=== PATIENT | female | born 1980 | race Caucasian/White ===

== ENCOUNTER 2016-12-02 19:23 | Emergency (ER) | payer SELFPAY ==
[2016-12-02] MEDS ORDERED: levETIRAcetam 500 MG TABLET PO ONE (19:54)
--- NOTE | 2016-12-02 19:56 | ED Physician Documentation ---
Seizure - HISTORIAN Historian: patient - HPI Stated Complaint: seizures Chief Complaint: Seizure Timing/Onset/Duration: multiple episodes Last known Well Date: 12/02/16 Last Known Well Time: 19:20 Last known Well Code/Unknown Code: Known Witnessed By: other (deputey) Preceding Symptoms: sleep deprivation, missed seizure meds. denies: fever, chills, recent alcohol intake, recent drug use Character of Seizure(s): lost consciousness, "shaking all over" Further Comments: yes (Patient has been incarcerated for about 36 hours, has had 3 seizures reported today. Patient states that she has not taken her seizure medication for the last three days and this is what usually willhapeen when that occurrs. Seizures last about 60-120 seconds. No incontinence noted or bowel incontinence noted. Patient states that she in is not sure of why she has seizures. Not sure when he blood levels were last drawn. Denies any head injury.) - ROS NEURO/PSYCH: denies: headache, fainting, dizziness - PAST HX Previous seizure/seizure disorder: long-standing, other (patient not sure why she has seizures) Etiology: idiopathic Other History: none Surgeries/Procedures: none Allergies/Adverse Reactions: Allergies Allergy/AdvReac Type Severity Reaction Status Date / Time No Known Allergies Allergy Verified 12/02/16 20:16 Home Medications: Ambulatory Orders Medication Instructions Recorded Cyclobenzaprine HCl [Flexeril] 5 mg PO DIRECTED 12/02/16 Divalproex Sodium [Depakote] 500 mg PO DIRECTED 12/02/16 Hydroxyzine Pamoate [Vistaril] 25 mg PO DIRECTED 12/02/16 Levetiracetam [Keppra] 1,200 mg PO D 12/02/16 - SOCIAL HX Smoking History: less than 1 pack/day Alcohol Use: none Drug Use: none - FAMILY HX Family History: none. denies: seizure - VITAL SIGNS Vital Signs: Vital Signs Temp Pulse Resp BP Pulse Ox 98 F 109 H 22 109/52 94 12/02/16 19:23 12/02/16 19:23 12/02/16 19:23 12/02/16 19:23 12/02/16 19:23 - REVIEWED ASSESSMENTS Nursing Assessment Reviewed: Yes Vitals Reviewed: Yes Progress - Results/Orders Results/Orders: Patient had a tonic/clonic seizure while checking in to the ED. Lasted about 90 seconds. Patient states that she is taking depokote 750mg daily and Keppra 1200mg BID. States that when she skips her meds and starts having seizures like today once she takes one to two doses of her meds she does OK. - Progress Progress: 20:43 Patient continues to rest quietly at this time. Is awake and alert, Ox3, no neurological deficiets noted. 21:10 Patient is resting queitly at this time. Patient has had her daily dose of medications tonight. It is believed that with the medication now on board that she will do will. I would consider giving some ativan to help with her nerves for the next 24hours. ED Results Lab/Radiology - Lab Results Lab Results: Lab Results 12/02/16 12/02/16 20:13 20:13 WBC 16.70 K/ul H K/ul (4.00-12.00) RBC 4.23 M/ul M/ul (3.90-5.20) Hgb 12.6 g/dL g/dL (12.0-16.0) Hct 42.1 % % (34.5-46.5) MCV 99.4 fl fl (80.0-100.0) MCH 29.8 pg pg (28.0-34.0) MCHC 30.0 g/dL g/dL (30.0-36.0) RDW 13.4 % % (11.3-14.3) Plt Count 204 K/mm3 K/mm3 (130-400) Neut % (Auto) 78.8 % % (39.0-79.0) Lymph % (Auto) 14.9 % L % (16.0-50.0) Fisher % (Auto) 3.9 % % (0.0-11.0) Eos % (Auto) 0.1 % % (0.0-6.8) Baso % (Auto) 0.5 (0.0-1.5) Neut # (Auto) 13.2 # k/uL H # k/uL (1.4-7.7) Lymph # (Auto) 2.5 # k/uL # k/uL (0.6-4.0) Fisher # (Auto) 0.7 # k/uL # k/uL (0.0-0.9) Eos # (Auto) 0.0 # k/uL # k/uL (0.0-0.6) Baso # (Auto) 0.1 # k/uL # k/uL (0.0-0.5) Reactive Lymphs % 1.8 % % (0.0-5.0) Reactive Lymphs # 0.3 # k/uL # k/uL (0.0-0.8) Sodium 143 mmol/L mmol/L (136-145) Potassium 3.5 mmol/L mmol/L (3.5-5.0) Chloride 103 mmol/L mmol/L (98-110) Carbon Dioxide 15 mmol/L L mmol/L (20-32) BUN 11 mg/dL mg/dL (10-26) Creatinine 0.7 mg/dL mg/dL (0.4-1.5) Est GFR ( Amer) > 60 (60 - ) Est GFR (Non-Af Amer) > 60 (60 - ) Glucose 168 mg/dL H mg/dL (70-99) Calcium 9.6 mg/dL mg/dL (8.5-10.5) Total Bilirubin 0.3 mg/dL mg/dL (0.2-1.2) AST 18 U/L U/L (0-41) ALT 17 U/L U/L (0-45) Alkaline Phosphatase 54 U/L U/L (46-116) Total Protein 7.6 g/dL g/dL (6.0-8.5) Albumin 5.0 g/dL g/dL (3.0-5.5) - Orders Orders: ED Orders Category Date Time Status Apply Restraints 1T Care 12/02/16 19:35 Active Remove Restraints .Once Care 12/02/16 20:02 Active CBC/PLATELET/DIFF Routine Lab 12/02/16 20:13 Completed CMP Routine Lab 12/02/16 20:13 Completed DRUG SCREEN URINE MEDICAL ONLY Routine Lab 12/02/16 Ordered URINALYSIS Routine Lab 12/02/16 20:43 Ordered URINE HCG Urgent Lab 12/02/16 Uncollected LORazepam [Ativan] Med 12/02/16 20:12 Discontinued 1 mg IM NOW ONE levETIRAcetam [Keppra] Med 12/02/16 19:54 Discontinued 1,000 mg PO NOW ONE Seizure Physical Exam - Physical Exam General Appearance: no acute distress, alert, other (patient was very aggitated on admission) Altered Mental Status Higher Functions: oriented x3 EENT: nml eye inspection, PERRL, tongue abrasion (left lateral) Neck/Back: normal inspection, thyroid normal, supple Respiratory: no resp. distress, breath sounds nml CVS: reg rate & rhythm Abdomen: non-tender, no organomegaly, nml bowel sounds Skin: warm/dry, normal color Extremities: normal range of motion, non-tender Observed Seizure Activity in ED: generalized - Nexus Criteria Neg Nexus Criteria: Nexus criteria neg Discharge Clincal Impression: Seizure Referrals: Primary Doctor,No [Primary Care Provider] - 2 Days Additional Instructions: Continue to take your seizure medications as prescribed. Take ativan 0.5mg twice a day as needed for anxiety. If you have any further problems to return to the ED. Home Medications: Ambulatory Orders Cyclobenzaprine HCl [Flexeril] 5 mg PO DIRECTED 12/02/16 Divalproex Sodium [Depakote] 500 mg PO DIRECTED 12/02/16 Hydroxyzine Pamoate [Vistaril] 25 mg PO DIRECTED 12/02/16 Levetiracetam [Keppra] 1,200 mg PO D 12/02/16 Condition: Stable Disposition: 01 HOME, SELF-CARE Decision to Admit: NO Date of Decison to Admit: 12/02/16 Decision Time: 21:05
[2016-12-02] MEDS ORDERED: LORazepam 2 MG/ML VIAL IM ONE (20:12)
[2016-12-02 20:21] LABS: BASOPHILS % 0.5 (0.0-1.5); EOSINOPHILS % 0.1 % (0.0-6.8); MEAN CORPUSCULAR HEMOGLOBIN 29.8 pg (28.0-34.0); MEAN CORPUSCULAR VOLUME 99.4 fl (80.0-100.0); MONOCYTES % 3.9 % (0.0-11.0); NEUTROPHILS # 13.2 # k/uL (1.4-7.7)
[2016-12-02 20:30] LABS: eGFR (African) > 60; eGFR (Non-African) > 60
[2016-12-02 21:54] VITALS: BP 122/72
[2016-12-03 06:16] LABS: APPEARANCE,URINE CLOUDY (CLEAR); COLOR,URINE BROWN (YELLOW); OCCULT BLOOD,URINE 3+ (NEGATIVE); URINE HCG NEGATIVE (NEGATIVE); UROBILINOGEN URINE 0.2 Eu (0.2-1.0)
[2016-12-03 06:17] LABS: AMPHETAMINE NEGATIVE ng/mL (<1000); BARBITURATES NEGATIVE ng/mL (<300); CANNABINOIDS NEGATIVE ng/mL (< 50); COCAINE NEGATIVE ng/mL (<150); METHAMPHETAMINE NEGATIVE ng/mL (<1000); METHYLENEDIOXYMETHAMPHETAMINE NEGATIVE ng/mL (<500); OPIATES NEGATIVE ng/mL (<300)
== END 2016-12-02 21:31 | disposition home or self-care (01) ==
LOC: ED 19:23
DX: R56.9 Unspecified convulsions (principal)
CPT/HCPCS: 80053; 85025; J2060; 80377; 81002; 81025; 96372; 99283; G0481; S1016